=== PATIENT | male | born 1960 | race Caucasian/White ===

== ENCOUNTER 2017-01-08 04:44 | Inpatient (IN) | payer MEDICARE, OTHER ==
[~2017-01-08] VITALS: Ht 162.6 cm; Wt 88.4 kg
[2017-01-08] MEDS ORDERED: NITROGLYCERIN SINGLE TAB 0.4 MG SL ONE (04:57)
[2017-01-08] MEDS ORDERED: methylPREDNISolone SOD SUCC 125 MG/2 ML ONE (04:57)
[2017-01-08] MEDS: NITROGLYCERIN SINGLE TAB 0.4 MG SL PRN ×3 (04:59→05:36)
[2017-01-08] MEDS ORDERED: methylPREDNISolone SOD SUCC 125 MG/2 ML IVP ONE (05:00)
[2017-01-08] MEDS ORDERED: BENZ100C PO (05:30)
[2017-01-08] MEDS ORDERED: WARF4TAB7 PO (05:30)
[2017-01-08] MEDS ORDERED: AMLO10TA2 PO (05:30)
[2017-01-08] MEDS ORDERED: SUCR500T PO (05:30)
[2017-01-08] MEDS ORDERED: GLYC10.7 INH (05:30)
[2017-01-08] MEDS ORDERED: CINA30TA PO (05:30)
[2017-01-08] MEDS ORDERED: OMEP40CA6 PO (05:30)
[2017-01-08] MEDS ORDERED: FOLI0.8T22 PO (05:30)
[2017-01-08] MEDS ORDERED: TEMA30CA PO (05:30)
[2017-01-08 05:35] LABS: ASPARTATE AMINO TRANSFERASE 17 U/L (15-37); BLOOD UREA NITROGEN 77 mg/dL (7-18)
[2017-01-08 05:41] LABS: IS PT STATUS REG ER OR PRE ER? YES
[2017-01-08 05:46] LABS: ABG COLLECTION SITE LEFT BRACHIAL
[2017-01-08] MEDS ORDERED: MORPHINE SULFATE 4 MG/ML, 1ML ONE (05:55)
[2017-01-08] MEDS ORDERED: ONDANSETRON 2MG/ML, 2ML ONE (05:55)
[2017-01-08] MEDS ORDERED: MORPHINE SULFATE 4 MG/ML, 1ML IVPush PRN (06:00)
[2017-01-08] MEDS ORDERED: SODIUM CHLORIDE FLUSH 10ML SYR IVF PRN (06:30)
[2017-01-08] MEDS ORDERED: ENALAPRILAT 1.25 MG/ML, 2ML IVPush PRN (07:30)
[2017-01-08] MEDS ORDERED: GUAIFENESIN/DM 200-20MG, 10ML UDC PO PRN (07:30)
[2017-01-08] MEDS ORDERED: LABETALOL 5MG/ML, 20ML IVPush PRN (07:30)
[2017-01-08] MEDS ORDERED: POLYETHYLENE GLYCOL 17 GM PACKET PO PRN (07:30)
[2017-01-08] MEDS ORDERED: ACETAMINOPHEN 325 MG TABLET PO PRN (07:30)
[2017-01-08] MEDS ORDERED: ONDANSETRON 2MG/ML, 2ML IVPush PRN (07:30)
[2017-01-08] MEDS ORDERED: AMLODIPINE 5 MG TABLET PO SCH (09:00)
[2017-01-08] MEDS ORDERED: OMEPRAZOLE 20 MG CAPSULE.DR PO SCH (09:00)
[2017-01-08] MEDS: SENNA/DOCUSATE TABLET PO SCH (09:00)
[2017-01-08] MEDS ORDERED: SUCROFERRIC OXYHYDROXIDE HOMEMEDPO SCH ×2 (09:00→21:00)
[2017-01-08] MEDS ORDERED: MULTIVITS,STRESS FORMULA 1 TABLET PO SCH (09:00)
[2017-01-08] MEDS ORDERED: CINACALCET 30 MG TABLET PO SCH (09:00)
[2017-01-08] MEDS: SODIUM CHLORIDE FLUSH 10ML SYR IVF SCH ×2 (09:58→20:44)
[2017-01-08] MEDS ORDERED: LIDOCAINE/PRILOCAINE CRM W/TEG 5GM TP PRN (11:00)
[2017-01-08 11:08] LABS: IS PT STATUS REG ER OR PRE ER? NO
[2017-01-08 17:57] LABS: IS PT STATUS REG ER OR PRE ER? NO
[2017-01-08] MEDS ORDERED: WARFARIN 1 MG TABLET PO-COUM SCH (18:00)
[2017-01-08] MEDS: MULTIVITS,STRESS FORMULA 1 TABLET PO SCH (20:44)
[2017-01-08] MEDS: TEMAZEPAM 30 MG CAPSULE PO SCH (20:44)
[2017-01-08] MEDS: OMEPRAZOLE 20 MG CAPSULE.DR PO SCH (20:44)
[2017-01-09 05:36] LABS: ASPARTATE AMINO TRANSFERASE 10 U/L (15-37); BLOOD UREA NITROGEN 49 mg/dL (7-18)
[2017-01-09 08:48] LABS: HEP B SURF. AB 10.8 mIU/mL (0.0-10.0)
[2017-01-09] MEDS: SENNA/DOCUSATE TABLET PO SCH (09:00)
[2017-01-09] MEDS: SODIUM CHLORIDE FLUSH 10ML SYR IVF SCH ×2 (09:02→22:02)
[2017-01-09] MEDS ORDERED: SUCROFERRIC OXYHYDROXIDE HOMEMEDPO SCH (09:15)
[2017-01-09] MEDS: SUCROFERRIC OXYHYDROXIDE HOMEMEDPO SCH ×2 (12:29→17:00)
[2017-01-09 19:11] VITALS: BP_SYST 147; BP_SYST 161; BP_DIAS 83; BP_DIAS 96
[2017-01-09] MEDS ORDERED: CINACALCET 30 MG TABLET PO SCH (21:00)
[2017-01-09] MEDS ORDERED: AMLODIPINE 5 MG TABLET PO SCH (21:00)
[2017-01-09] MEDS: MULTIVITS,STRESS FORMULA 1 TABLET PO SCH (22:01)
[2017-01-09] MEDS: TEMAZEPAM 30 MG CAPSULE PO SCH (22:01)
[2017-01-09] MEDS: OMEPRAZOLE 20 MG CAPSULE.DR PO SCH (22:03)
[2017-01-10 01:47] VITALS: BP 130/74
[2017-01-10 05:56] LABS: BLOOD UREA NITROGEN 57 mg/dL (7-18)
[2017-01-10 08:31] VITALS: BP 136/84
[2017-01-10] MEDS: SENNA/DOCUSATE TABLET PO SCH (08:38)
[2017-01-10] MEDS: SODIUM CHLORIDE FLUSH 10ML SYR IVF SCH (08:38)
[2017-01-10] MEDS: SUCROFERRIC OXYHYDROXIDE HOMEMEDPO SCH ×2 (08:39→13:15)
[2017-01-10] MEDS ORDERED: WARFARIN 2 MG TABLET PO-COUM ONE (18:00)
== END 2017-01-10 16:50 | disposition home or self-care (01) | DRG 291 ==
LOC: ED 06:44 → CCU 06:47 → 4EST 01-09 18:36 → DCLOUNGE 01-10 15:44
PROVIDERS: ADMIT Internal Medicine; ATTEND Internal Medicine
PROC: 5A1D60Z (ICD-10-PCS; principal; 2017-01-08)
PROC: 5A09457 Assistance with Respiratory Ventilation, 24-96 Consecutive Hours, Continuous Positive Airway Pressure (ICD-10-PCS; 2017-01-08)
DX: I13.2 Hypertensive heart and chronic kidney disease with heart failure and with stage 5 chronic kidney disease, or end stage renal disease (principal); J96.01 Acute respiratory failure with hypoxia; N18.6 End stage renal disease; I50.21 Acute systolic (congestive) heart failure; D68.59 Other primary thrombophilia; N02.8 Recurrent and persistent hematuria with other morphologic changes; D63.1 Anemia in chronic kidney disease; J84.10 Pulmonary fibrosis, unspecified; N25.0 Renal osteodystrophy; Z82.49 Family history of ischemic heart disease and other diseases of the circulatory system; Z83.3 Family history of diabetes mellitus; Z99.2 Dependence on renal dialysis; Z90.49 Acquired absence of other specified parts of digestive tract; Z80.9 Family history of malignant neoplasm, unspecified; Z87.01 Personal history of pneumonia (recurrent)
CPT/HCPCS: 36415; 36600; 71010; 80048; 80053; 82803; 83605; 83880; 84484; 85025; 85610; 86704; 86706; 87040; 87081; 87340; 93005; 93306; 94660; 96374; 96375; J2930